=== PATIENT | female | born 1955 | race Hispanic/Latino ===

== ENCOUNTER 2021-11-11 15:05 | Emergency (ER) | payer OTHER ==
[~2021-11-11] VITALS: Ht 162.6 cm; Wt 75.7 kg
[2021-11-11 16:00] LABS: BASOPHILS % (AUTO) 0.8 % (0.0-5.0); EOSINOPHILS % (AUTO) 1.4 % (0.0-8.0); HEMATOCRIT 38.1 % (36-48); MEAN CORPUSCULAR HEMOGLOBIN 23.4 pg (27.0-33.0); MEAN CORPUSCULAR HGB CONC 31.2 g/dL (32.0-36.0); MEAN CORPUSCULAR VOLUME 74.9 fL (79-99); MONOCYTES % (AUTO) 15.1 % (3.0-13.0); NEUTROPHILS % (AUTO) 54.5 % (40.0-77.0); PLATELET COUNT (AUTO) 170 K/uL (130-400); RED BLOOD CELL COUNT(AUTO) 5.09 MIL/uL (4.00-5.50); RED CELL DISTRIBUTION WIDTH 25.4 % (11.0-15.5); WHITE BLOOD COUNT (AUTO) 4.9 K/uL (4.8-10.8)
[2021-11-11 16:04] VITALS: BP 126/66
[2021-11-11 16:15] LABS: ALBUMIN 2.7 g/dL (3.5-5.0); BILIRUBIN,TOTAL 1.3 mg/dL (0.2-1.0); CREATININE 0.6 mg/dL (0.5-1.5)
[2021-11-11 16:18] LABS: POTASSIUM 2.8 mmol/L (3.5-5.1)
[2021-11-11] MEDS ORDERED: POTASSIUM BICARB/CIT AC 25 MEQ TABLET.EFF PO ONE (16:30)
[2021-11-11 16:35] LABS: APPEARANCE,URINE SL CLOUDY (CLEAR); BILIRUBIN,URINE SMALL (NEGATIVE); COLOR,URINE YELLOW (YELLOW); GLUCOSE, URINE (UA) NEGATIVE (NEGATIVE); KETONES,URINE 5 mg/dL (NEGATIVE); LEUKOCYTE ESTERASE ,URINE NEGATIVE (NEGATIVE); NITRATE,URINE NEGATIVE (NEGATIVE); OCCULT BLOOD,URINE NEGATIVE (NEGATIVE); PROTEIN,URINE NEGATIVE (NEGATIVE)
[2021-11-11 16:54] LABS: BACTERIA,URINE Few /HPF (None Seen); MUCUS,URINE Moderate LPF (None Seen); RBC,URINE 0-1 /HPF (0-1); SQUAMOUS EPITHELIAL CELL,UR Moderate /HPF (0-2); WBC,URINE 0-1 /HPF (0-1)
[2021-11-11 16:57] LABS: TRANSITIONAL EPI CELLS,URINE Rare /HPF (None Seen)
[2021-11-11] MEDS ORDERED: POLY17PO4 PO (17:41)
== END 2021-11-11 17:55 | disposition home or self-care (01) ==
LOC: EDH 15:05
DX: E87.6 Hypokalemia (principal); R18.8 Other ascites; K59.00 Constipation, unspecified
CPT/HCPCS: 36415; 74176; 80053; 81001; 85025

== ENCOUNTER 2021-11-16 09:07 | Emergency (ER) | payer OTHER ==
[~2021-11-16] VITALS: Ht 154.9 cm; Wt 75.7 kg
[~2021-11-16 09:07] MED LIST: POLY17PO4 PO
[2021-11-16 09:34] LABS: BASOPHILS % (AUTO) 0.8 % (0.0-5.0); EOSINOPHILS % (AUTO) 0.9 % (0.0-8.0); HEMATOCRIT 40.7 % (36-48); LYMPHOCYTES % (AUTO) 28.7 % (21.0-51.0); MEAN CORPUSCULAR HEMOGLOBIN 23.5 pg (27.0-33.0); MEAN CORPUSCULAR HGB CONC 31.2 g/dL (32.0-36.0); MEAN CORPUSCULAR VOLUME 75.2 fL (79-99); MONOCYTES % (AUTO) 14.7 % (3.0-13.0); NEUTROPHILS % (AUTO) 54.5 % (40.0-77.0); PLATELET COUNT (AUTO) 189 K/uL (130-400); RED BLOOD CELL COUNT(AUTO) 5.41 MIL/uL (4.00-5.50); RED CELL DISTRIBUTION WIDTH 25.3 % (11.0-15.5); WHITE BLOOD COUNT (AUTO) 5.3 K/uL (4.8-10.8)
[2021-11-16 09:47] LABS: ALANINE AMINOTRANSFERASE 22 U/L (12-78); ALBUMIN 2.7 g/dL (3.5-5.0); ASPARTATE AMINOTRANSFERASE 41 U/L (10-37); CARBON DIOXIDE 27 mmol/L (21-32); CHLORIDE 105 mmol/L (101-111); CREATININE 0.7 mg/dL (0.5-1.5); GLOMERULAR FILTR. RATE CALC 90 mL/min (>60); GLUCOSE,RANDOM 106 mg/dL (70-105); SODIUM SERUM 141 mmol/L (136-145); TOTAL PROTEIN, SERUM 7.2 g/dL (6.0-8.3); UREA NITROGEN, BLOOD 22 mg/dL (7-18)
[2021-11-16 10:10] LABS: POTASSIUM 2.9 mmol/L (3.5-5.1)
[2021-11-16] MEDS ORDERED: KCL 20 MEQ ERTAB PO ONE (11:30)
[2021-11-16] MEDS ORDERED: ONDANSETRON 4MG INJ IVP ONE (11:30)
[2021-11-16] MEDS ORDERED: MORPHINE 2 MG SYG IVP ONE (11:30)
[2021-11-16 13:50] LABS: ALBUMIN,BODY FLUID 0.8 g/dL
[2021-11-16 13:56] VITALS: BP 132/61
[2021-11-16 14:27] LABS: APPEARANCE BODY FLUID CLOUDY (CLEAR); COLOR,BODY FLUID YELLOW (LT YELLOW); SPECIMENTYPE,BODY FLUID ASCITES; TOTAL VOLUME,BODY FLUID 30 mL
[2021-11-16 14:35] LABS: BODY FLUID WBC 909 /cu. mm.
[2021-11-16 14:36] LABS: BODY FLUID RBC 2150 /cu. mm.
[2021-11-16 14:38] LABS: BF LYMPHOCYTE 93 %; BF MESOTHELIAL 1 %; BF MONOCYTE 3 %
[2021-11-16] MEDS ORDERED: CEFTRIAXONE 2GM VIAL IVP ONE (15:30)
[2021-11-16] MEDS ORDERED: CEFD300C3 PO (15:59)
== END 2021-11-16 17:03 | disposition home or self-care (01) ==
LOC: EDH 09:07
DX: R18.8 Other ascites (principal); E87.6 Hypokalemia; K74.60 Unspecified cirrhosis of liver; E11.9 Type 2 diabetes mellitus without complications; I10 Essential (primary) hypertension; Z98.890 Other specified postprocedural states; Z60.2 Problems related to living alone; Z79.899 Other long term (current) drug therapy
CPT/HCPCS: 49082; 99285; 96374; 76705; 96375; 84157; 80053; 83690; 85025; 89051; 87071; 87205; 82042; 36415; J0696; J2405

== ENCOUNTER 2021-11-28 23:44 | Inpatient (IN) | payer OTHER ==
[~2021-11-28] VITALS: Ht 152.4 cm; Wt 76.8 kg
[~2021-11-28 23:44] MED LIST changes: +CEFD300C3 PO
[2021-11-28 23:58] LABS: BASOPHILS % (AUTO) 0.9 % (0.0-5.0); EOSINOPHILS % (AUTO) 1.1 % (0.0-8.0); HEMATOCRIT 38.9 % (36-48); LYMPHOCYTES % (AUTO) 23.3 % (21.0-51.0); MEAN CORPUSCULAR HEMOGLOBIN 23.7 pg (27.0-33.0); MEAN CORPUSCULAR HGB CONC 30.8 g/dL (32.0-36.0); MEAN CORPUSCULAR VOLUME 76.7 fL (79-99); MONOCYTES % (AUTO) 18.2 % (3.0-13.0); NEUTROPHILS % (AUTO) 56.3 % (40.0-77.0); PLATELET COUNT (AUTO) 157 K/uL (130-400); RED BLOOD CELL COUNT(AUTO) 5.07 MIL/uL (4.00-5.50); RED CELL DISTRIBUTION WIDTH 24.7 % (11.0-15.5); WHITE BLOOD COUNT (AUTO) 6.5 K/uL (4.8-10.8)
[2021-11-29 00:10] LABS: CARBON DIOXIDE 28 mmol/L (21-32); CHLORIDE 101 mmol/L (101-111); CREATININE 0.8 mg/dL (0.5-1.5); GLOMERULAR FILTR. RATE CALC 77 mL/min (>60); GLUCOSE,RANDOM 105 mg/dL (70-105); POTASSIUM 3.6 mmol/L (3.5-5.1); SODIUM SERUM 134 mmol/L (136-145); UREA NITROGEN, BLOOD 12 mg/dL (7-18)
[2021-11-29 00:18] LABS: ALANINE AMINOTRANSFERASE 39 U/L (12-78); ALBUMIN 2.4 g/dL (3.5-5.0); ASPARTATE AMINOTRANSFERASE 71 U/L (10-37); TOTAL PROTEIN, SERUM 6.8 g/dL (6.0-8.3)
[2021-11-29 00:28] LABS: INR 1.16 (0.85-1.15); PARTIAL THROMBOPLASTIN TIME 26.4 SEC (26.3-35.5)
[2021-11-29] MEDS ORDERED: ONDANSETRON 4MG INJ IV PRN (01:30)
[2021-11-29] MEDS ORDERED: ACETAMINOPHEN WITH CODEINE 1 TAB TAB PO PRN (01:30)
[2021-11-29] MEDS ORDERED: HYDROMORPHONE 1 MG INJ IV PRN (01:30)
[2021-11-29] MEDS ORDERED: ACETAMINOPHEN 325 MG TAB PO PRN ×2 (01:30)
[2021-11-29 01:54] LABS: HEMOGLOBIN A1C 5.7 % (4.0-6.0)
[2021-11-29] MEDS: FUROSEMIDE 20MG VIAL IV SCH ×2 (02:40→15:46)
[2021-11-29 03:00] VITALS: BP 129/73
[2021-11-29] MEDS ORDERED: SPIR25TA6 PO (03:31)
[2021-11-29] MEDS ORDERED: METF-444 PO (03:31)
[2021-11-29] MEDS ORDERED: ATOR20TA65 PO (03:31)
[2021-11-29] MEDS ORDERED: CANA300T PO (03:31)
[2021-11-29] MEDS ORDERED: LEVO50CA4 PO (03:31)
[2021-11-29 03:33] LABS: APPEARANCE,URINE CLEAR (CLEAR); BILIRUBIN,URINE NEGATIVE (NEGATIVE); COLOR,URINE YELLOW (YELLOW); GLUCOSE, URINE (UA) >=1000 mg/dL (NEGATIVE); KETONES,URINE NEGATIVE (NEGATIVE); LEUKOCYTE ESTERASE ,URINE NEGATIVE (NEGATIVE); NITRATE,URINE NEGATIVE (NEGATIVE); OCCULT BLOOD,URINE NEGATIVE (NEGATIVE); PROTEIN,URINE NEGATIVE (NEGATIVE); UROBILINOGEN,URINE 0.2 mg/dL (0.2-1.0)
[2021-11-29 03:50] LABS: WBC,URINE 0-1 /HPF (0-1)
[2021-11-29 03:58] LABS: BACTERIA,URINE None Seen /HPF (None Seen)
[2021-11-29 03:59] LABS: SQUAMOUS EPITHELIAL CELL,UR Few /HPF (0-2)
[2021-11-29] MEDS: LEVOFLOXACIN 500 MG/D5W 100 ML 100 ML IV SCH (04:42)
[2021-11-29] MEDS: INSULIN HUMULIN R 100 UNIT/ML 3ML SQ SCH ×4 (06:08→19:59)
[2021-11-29] MEDS: LEVOTHYROXINE 50 MCG TABLET PO SCH (07:44)
[2021-11-29] MEDS: PANTOPRAZOLE 40 MG/VIAL IVP SCH (08:32)
[2021-11-29] MEDS: SPIRONOLACTONE 25 MG TAB PO SCH ×2 (08:33→20:31)
[2021-11-29] MEDS: LACTULOSE 20 GM/30 ML UDCUP PO SCH ×2 (08:33→20:33)
[2021-11-29] MEDS: Vitamin B Complex/Vit C/Folic Acid PO SCH (08:33)
[2021-11-29] MEDS ORDERED: FAMOTIDINE 20MG VIAL IV SCH (09:00)
[2021-11-29] MEDS ORDERED: RIFAXIMIN 200 MG TABLET PO SCH (09:00)
[2021-11-29 09:19] VITALS: BP 105/59
[2021-11-29 09:22] LABS: BASOPHILS % (AUTO) 0.8 % (0.0-5.0); EOSINOPHILS % (AUTO) 1.9 % (0.0-8.0); HEMATOCRIT 35.7 % (36-48); LYMPHOCYTES % (AUTO) 22.3 % (21.0-51.0); MEAN CORPUSCULAR HEMOGLOBIN 24.5 pg (27.0-33.0); MEAN CORPUSCULAR HGB CONC 31.7 g/dL (32.0-36.0); MEAN CORPUSCULAR VOLUME 77.4 fL (79-99); MONOCYTES % (AUTO) 19.1 % (3.0-13.0); NEUTROPHILS % (AUTO) 55.6 % (40.0-77.0); PLATELET COUNT (AUTO) 141 K/uL (130-400); RED BLOOD CELL COUNT(AUTO) 4.61 MIL/uL (4.00-5.50); RED CELL DISTRIBUTION WIDTH 24.4 % (11.0-15.5); WHITE BLOOD COUNT (AUTO) 6.2 K/uL (4.8-10.8)
[2021-11-29 09:54] LABS: CARBON DIOXIDE 21 mmol/L (21-32); CHLORIDE 101 mmol/L (101-111); CREATININE 0.7 mg/dL (0.5-1.5); GLOMERULAR FILTR. RATE CALC 90 mL/min (>60); GLUCOSE,RANDOM 83 mg/dL (70-105); POTASSIUM 3.7 mmol/L (3.5-5.1); SODIUM SERUM 133 mmol/L (136-145); UREA NITROGEN, BLOOD 13 mg/dL (7-18)
[2021-11-29 09:59] LABS: ALANINE AMINOTRANSFERASE 36 U/L (12-78); ALBUMIN 2.2 g/dL (3.5-5.0); ASPARTATE AMINOTRANSFERASE 69 U/L (10-37); TOTAL PROTEIN, SERUM 6.4 g/dL (6.0-8.3)
[2021-11-29] MEDS: ATORVASTATIN 20 MG TABLET PO SCH (10:34)
[2021-11-29 12:45] VITALS: BP 120/70
[2021-11-29 17:45] VITALS: BP 123/74
[2021-11-29 20:27] VITALS: BP 117/60
[2021-11-29] MEDS: RIFAXIMIN 550 MG TABLET PO SCH (20:31)
[2021-11-30] VITALS (14 sets, daily range): BP systolic 98–131; BP diastolic 43–67
[2021-11-30] MEDS: FUROSEMIDE 20MG VIAL IV SCH ×2 (02:09→17:41)
[2021-11-30] MEDS: LEVOFLOXACIN 500 MG/D5W 100 ML 100 ML IV SCH (04:16)
[2021-11-30 05:07] LABS: BASOPHILS % (AUTO) 0.5 % (0.0-5.0); EOSINOPHILS % (AUTO) 2.2 % (0.0-8.0); HEMATOCRIT 35.7 % (36-48); LYMPHOCYTES % (AUTO) 26.7 % (21.0-51.0); MEAN CORPUSCULAR HEMOGLOBIN 24.3 pg (27.0-33.0); MEAN CORPUSCULAR HGB CONC 31.4 g/dL (32.0-36.0); MEAN CORPUSCULAR VOLUME 77.4 fL (79-99); MONOCYTES % (AUTO) 18.9 % (3.0-13.0); NEUTROPHILS % (AUTO) 51.5 % (40.0-77.0); PLATELET COUNT (AUTO) 140 K/uL (130-400); RED BLOOD CELL COUNT(AUTO) 4.61 MIL/uL (4.00-5.50); RED CELL DISTRIBUTION WIDTH 24.3 % (11.0-15.5); WHITE BLOOD COUNT (AUTO) 4.1 K/uL (4.8-10.8)
[2021-11-30] MEDS: LEVOTHYROXINE 50 MCG TABLET PO SCH (05:46)
[2021-11-30 06:36] LABS: ALANINE AMINOTRANSFERASE 38 U/L (12-78); ASPARTATE AMINOTRANSFERASE 62 U/L (10-37); CARBON DIOXIDE 28 mmol/L (21-32); CHLORIDE 104 mmol/L (101-111); CREATININE 0.7 mg/dL (0.5-1.5); GLOMERULAR FILTR. RATE CALC 90 mL/min (>60); GLUCOSE,RANDOM 90 mg/dL (70-105); POTASSIUM 3.4 mmol/L (3.5-5.1); SODIUM SERUM 138 mmol/L (136-145); TOTAL PROTEIN, SERUM 5.9 g/dL (6.0-8.3); UREA NITROGEN, BLOOD 10 mg/dL (7-18)
[2021-11-30] MEDS: INSULIN HUMULIN R 100 UNIT/ML 3ML SQ SCH ×4 (06:51→21:00)
[2021-11-30] MEDS ORDERED: MAGNESIUM 2GM PREMIX 50ML 50 ML IV PRN (08:00)
[2021-11-30] MEDS ORDERED: KCL 20 MEQ ERTAB PO PRN (08:00)
[2021-11-30] MEDS ORDERED: POTASSIUM CHLORIDE 10% ELIXIR 20 MEQ/15 ML UDCUP PO PRN (08:00)
[2021-11-30] MEDS ORDERED: POTASSIUM CHLORIDE 20MEQ/100ML 100 ML IV PRN (08:00)
[2021-11-30] MEDS: RIFAXIMIN 550 MG TABLET PO SCH ×2 (12:35→21:32)
[2021-11-30] MEDS: Vitamin B Complex/Vit C/Folic Acid PO SCH (12:36)
[2021-11-30] MEDS: LACTULOSE 20 GM/30 ML UDCUP PO SCH ×2 (12:46→21:32)
[2021-11-30] MEDS: PANTOPRAZOLE 40 MG/VIAL IVP SCH (12:46)
[2021-11-30] MEDS: SPIRONOLACTONE 25 MG TAB PO SCH ×2 (12:46→21:32)
[2021-11-30 13:29] LABS: ALBUMIN,BODY FLUID 0.9 g/dL
[2021-11-30] MEDS: ATORVASTATIN 20 MG TABLET PO SCH (13:35)
[2021-11-30 17:15] LABS: SPECIMENTYPE,BODY FLUID ASCITES
[2021-11-30 17:16] LABS: APPEARANCE BODY FLUID CLOUDY (CLEAR); BODY FLUID WBC 199 /cu. mm.; COLOR,BODY FLUID DARK YELLOW (LT YELLOW); TOTAL VOLUME,BODY FLUID 3500 mL
[2021-11-30 17:17] LABS: BODY FLUID RBC 3995 /cu. mm.
[2021-11-30 20:03] LABS: BF LYMPHOCYTE 64 %; BF OTHER CELLS 4
[2021-12-01] MEDS: FUROSEMIDE 20MG VIAL IV SCH (01:33)
[2021-12-01] MEDS: LEVOFLOXACIN 500 MG/D5W 100 ML 100 ML IV SCH (03:33)
[2021-12-01 04:28] VITALS: BP 101/61
[2021-12-01] MEDS: INSULIN HUMULIN R 100 UNIT/ML 3ML SQ SCH (06:02)
[2021-12-01] MEDS: LEVOTHYROXINE 50 MCG TABLET PO SCH (06:17)
[2021-12-01 06:30] LABS: BASOPHILS % (AUTO) 0.6 % (0.0-5.0); EOSINOPHILS % (AUTO) 0.8 % (0.0-8.0); HEMATOCRIT 38.1 % (36-48); LYMPHOCYTES % (AUTO) 20.8 % (21.0-51.0); MEAN CORPUSCULAR HGB CONC 31.5 g/dL (32.0-36.0); MEAN CORPUSCULAR VOLUME 76.4 fL (79-99); NEUTROPHILS % (AUTO) 57.8 % (40.0-77.0); PLATELET COUNT (AUTO) 138 K/uL (130-400); RED BLOOD CELL COUNT(AUTO) 4.99 MIL/uL (4.00-5.50); RED CELL DISTRIBUTION WIDTH 24.4 % (11.0-15.5); WHITE BLOOD COUNT (AUTO) 4.7 K/uL (4.8-10.8)
[2021-12-01 06:44] LABS: CREATININE 0.7 mg/dL (0.5-1.5); POTASSIUM 3.7 mmol/L (3.5-5.1)
[2021-12-01 07:55] VITALS: BP 113/56
[2021-12-01] MEDS: PANTOPRAZOLE 40 MG/VIAL IVP SCH (09:33)
[2021-12-01] MEDS: RIFAXIMIN 550 MG TABLET PO SCH (09:35)
[2021-12-01] MEDS: LACTULOSE 20 GM/30 ML UDCUP PO SCH (09:35)
[2021-12-01] MEDS: SPIRONOLACTONE 25 MG TAB PO SCH (09:36)
[2021-12-01] MEDS: ATORVASTATIN 20 MG TABLET PO SCH (09:48)
[2021-12-01] MEDS ORDERED: FURO20TA6 PO (11:04)
[2021-12-01] MEDS ORDERED: LACT10SO9 PO (11:04)
[2021-12-01 11:33] VITALS: BP 124/68
[2021-12-01 16:20] VITALS: BP 111/58
== END 2021-12-01 20:34 | disposition home or self-care (01) | DRG 432 ==
LOC: EDH 23:44 → EDHIP 23:45 → 3DH 11-29 03:03
PROVIDERS: ADMIT Hospitalist; ATTEND Hospitalist
PROC: 0W9G3ZZ Drainage of Peritoneal Cavity, Percutaneous Approach (ICD-10-PCS; principal; 2021-11-30)
DX: K74.60 Unspecified cirrhosis of liver (principal); J96.01 Acute respiratory failure with hypoxia; R18.8 Other ascites; E87.70 Fluid overload, unspecified; E89.0 Postprocedural hypothyroidism; E11.9 Type 2 diabetes mellitus without complications; K76.0 Fatty (change of) liver, not elsewhere classified; Z20.822 Contact with and (suspected) exposure to COVID-19; E78.5 Hyperlipidemia, unspecified; I10 Essential (primary) hypertension
CPT/HCPCS: 36415; 49083; 71045; 76700; 80048; 80053; 81001; 82042; 82140; 82948; 83036; 83615; 83735; 84157; 84484; 85025; 85610; 85730; 87040; 87071; 87205; 87635; 89051; 93005; 93306; 93356; C1729; C9113; G0378; J1940; J1956; J3475

== ENCOUNTER 2022-02-21 00:04 | Emergency (ER) | payer OTHER ==
[~2022-02-21] VITALS: Ht 157.5 cm; Wt 66.7 kg
[~2022-02-21 00:04] MED LIST changes: +ATOR20TA65 PO; -CEFD300C3 PO; +FURO20TA6 PO; +LACT10SO9 PO; +LEVO50CA4 PO; -POLY17PO4 PO; +SPIR25TA6 PO
[2022-02-21 01:16] VITALS: BP 132/65
== END 2022-02-21 01:31 | disposition home or self-care (01) ==
LOC: EDH 00:04
DX: F41.0 Panic disorder [episodic paroxysmal anxiety] (principal); E11.9 Type 2 diabetes mellitus without complications; E78.00 Pure hypercholesterolemia, unspecified; I10 Essential (primary) hypertension

== ENCOUNTER 2024-03-20 16:45 | Emergency (ER) | payer OTHER, MEDICARE ==
[~2024-03-20] VITALS: Ht 154.9 cm; Wt 72.6 kg
[2024-03-20] MEDS: PANTOPrazole 40 MG/VIAL IVP ONE (17:46)
[2024-03-20] MEDS: 0.9%NACL 1000ML 1,000 ML IV ONE (17:46)
[2024-03-20] MEDS: ondanSETRON 4MG INJ IVP ONE (17:47)
--- NOTE | 2024-03-20 17:50 | HMCIMG ---
PORTABLE CHEST RADIOGRAPH INDICATION: cp COMPARISON: 12/01/2021 FINDINGS: Heart size is normal. The pulmonary vascularity and jeanne appear normal. No abnormal pulmonary parenchymal opacity or consolidation identified. No significant pleural effusion noted. No pneumothorax detected. IMPRESSION: No radiographic evidence for any acute cardiopulmonary process.
[2024-03-20 17:56] LABS: BASOPHILS # (AUTO) 0.04 K/uL (0.00-0.20); BASOPHILS % (AUTO) 0.5 % (0.0-5.0); EOSINOPHILS # (AUTO) 0.02 K/uL (0.00-0.70); EOSINOPHILS % (AUTO) 0.2 % (0.0-8.0); HEMATOCRIT 43.1 % (36-48); IMMATURE GRANULOCYTE ABSOLUTE 0.01 K/uL (0-1); LYMPHOCYTES # (AUTO) 0.9 K/uL (1.0-4.8); LYMPHOCYTES % (AUTO) 10.7 % (21.0-51.0); MEAN CORPUSCULAR HGB CONC 34.3 g/dL (32.0-36.0); MEAN CORPUSCULAR VOLUME 93.1 fL (79-99); MONOCYTES # (AUTO) 0.8 K/uL (0.1-1.0); MONOCYTES % (AUTO) 10.2 % (3.0-13.0); NEUTROPHILS # (AUTO) 6.4 K/uL (1.8-7.7); NEUTROPHILS % (AUTO) 78.3 % (40.0-77.0); PLATELET COUNT (AUTO) 96 K/uL (130-400); RED BLOOD CELL COUNT(AUTO) 4.63 MIL/uL (4.00-5.50); RED CELL DISTRIBUTION WIDTH 13.1 % (11.0-15.5); WHITE BLOOD COUNT (AUTO) 8.2 K/uL (4.8-10.8)
[2024-03-20] MEDS: morPHINE 4 MG SYG IVP ONE (17:56)
[2024-03-20 18:12] LABS: CREATININE 0.6 mg/dL (0.5-1.0); POTASSIUM 3.3 mmol/L (3.5-5.1)
[2024-03-20 18:54] LABS: ALBUMIN 3.5 g/dL (3.5-5.0); BILIRUBIN,DIRECT 0.6 mg/dL (0.0-0.3); BILIRUBIN,TOTAL 1.7 mg/dL (0.2-1.0); TOTAL PROTEIN, SERUM 7.6 g/dL (6.0-8.3)
[2024-03-20] MEDS ORDERED: IOHEXOL 350 MG/ML 100ML INFUS..BTL IV ONE (18:59)
--- NOTE | 2024-03-20 19:28 | HMCIMG ---
CT ABDOMEN WITH CONTRAST. CT PELVIS WITH CONTRAST INDICATION: Epigastric abdominal pain with nausea and vomiting TECHNIQUE: Routine transaxial images using 5 mm slice thickness were obtained after the intravenous infusion of 100 mL of Omnipaque 350 without adverse effects. Oral contrast was not administered. Rectal contrast was not administered. Coronal and sagittal reformatted images acquired for interpretation. CT was performed with one or more of the following dose reduction techniques: Automated exposure control, adjustment of the mA and/or kV according to patient size, or use of iterative reconstruction technique. COMPARISON: None FINDINGS: ABDOMEN: Heart size is normal. Visible lung bases are clear. The liver is normal in size and nodular in contour without lesions or biliary duct dilation. Diffuse low attenuation of the liver parenchyma suggests fatty change. The spleen is normal in size without lesions. The gallbladder appears normal. The pancreas appears normal without pancreatic duct dilation. The adrenal glands appear normal. Both kidneys appear unremarkable. Cortical nephrograms are symmetric and normal in appearance bilaterally. No evidence for intra-abdominal free air or organized fluid collection. No retrocrural, intraabdominal, or retroperitoneal lymphadenopathy identified. No aortic aneurysmal dilation or dissection identified. PELVIS: No evidence for free air or organized pelvic fluid collection. No significant pelvic adenopathy detected. 3.1 cm diverticulum arising superiorly off the mid to distal duodenal sweep. Several diverticula along the distal colon. Terminal ileum appears normal. The appendix appears normal. The urinary bladder appears unremarkable. Visible osseous structures are intact. IMPRESSION: Cirrhotic liver. Distal colonic diverticulosis. Additional minor findings and pertinent negatives as reported.
[2024-03-20] MEDS ORDERED: PANT20TA18 PO (20:39)
[2024-03-20] MEDS ORDERED: LACT10SO9 PO (20:39)
[2024-03-20] MEDS ORDERED: ONDA-243 PO (20:39)
--- NOTE | 2024-03-20 20:40 | ERN ---
ED Note History of Present Illness Stated Complaint: ABDOMINAL PAIN Chief Complaint: Abdominal Pain Time Seen by MD: 16:46 Time Seen by Midlevel: 16:46 Dictation: The patient is a 68-year-old female with a history of hypertension, diabetes, liver cirrhosis who presents to the emergency department with complaints of a epigastric abdominal pain onset 3:00 p.m. after eating associated with nausea, nonbloody vomiting. Patient denies diarrhea and reports constipation. Denies any fevers or urinary discomfort. Allergies: Coded Allergies: No Known Drug Allergies (Unverified Allergy, Unknown, 11/16/21) Home Meds Active Scripts Ondansetron (Ondansetron Odt) 4 Mg Tab.rapdis, 4 MG PO Q6HPRN PRN for nausea, #16 TAB 0 Refills Prov:SIGRID HEATON [employer] INSPECTOR 03/20/24 Pantoprazole Sodium (Pantoprazole Sodium) 20 Mg Tablet.dr, 1 TAB PO DAILY for 30 Days, #30 TAB 0 Refills Prov:SIGRID HEATON [employer]PECT[employer] 03/20/24 Lactulose (Lactulose) 20 Gram/30 Ml Solution, 30 ML PO DAILY for constipation for 30 Days, #900 ML 0 Refills Prov:SIGRID HEATON [employer] INSPECTOR 03/20/24 Lactulose (Lactulose) 20 Gm/30 Ml Solution, 20 GM PO BID for For constipation for 30 Days, #470 ML 0 Refills Prov:MICHAEL HERNANDEZ MD 12/01/21 Furosemide (Lasix 20Mg Tab) 20 Mg Tablet, 20 MG PO DAILY for 15 Days, #15 TAB 0 Refills Prov:MICHAEL HERNANDEZ MD 12/01/21 Reported Medications Atorvastatin Calcium (Atorvastatin Calcium) 20 Mg Tablet, 20 MG PO DAILY, TAB 11/29/21 Levothyroxine Sodium (Levothyroxine) 50 Mcg Capsule, 50 MCG PO ACBKFST, CAP 11/29/21 Spironolactone (Spironolactone) 25 Mg Tablet, 25 MG PO BOLUS, TAB 11/29/21 Past Medical History Past Medical History: Diabetes-Type II, High Cholesterol, Hypertension, Hypothyroid, Other Additional Past Medical Hx: LIVER CIRRHOSIS Surgical History: Other Surgical History Other: THYROIDECTOMY Social History: Negative, Lives with family, Lives alone History: Not Applicable RN Note Reviewed/Agreed w/PFSH: Yes Review of System Dictation Constitutional: Negative for fever,chills, and weight loss Eyes: Negative for injury, pain,redness, and discharge ENT: Negative for injury,pain or swelling Cardiovascular: Negative for chest pain, palpitations, and edema Respiratory: Negative for shortness of breath, cough, and wheezing, Abdomen/GI: Negative for diarrhea positive for abdominal pain, nausea, vomiting, constipation Back: Negative for injury and pain : Negative for injury, bleeding and discharge MS/Extremity: Negative for injury and deformity Skin: Negative for rash, and discoloration Neuro: Negative for headache, weakness, numbness, tingling, and seizure Psych: Negative for suicide ideation, homicidal ideation, and hallucinations Initial Vital Sign VS Vital Signs Date Time Temp Pulse Resp B/P (MAP) Pulse Ox O2 Delivery O2 Flow Rate FiO2 03/20/24 16:45 98.2 88 18 156/67 98 Room Air 0 03/20/24 16:58 21 Physical Exam Dictation Vital Signs reviewed General Appearance: Alert, oriented x 3, no acute distress, well developed, nourished. Head and Face: non-traumatic. Eyes: PERRL, pink conjunctivas, eyelid no trauma, anterior chamber with arcus senilis. Ears: Pinnas intact and no signs of trauma or erythema ear canals clear and no discharge TM no erythema Nose: No discharge, no bleeding. Oropharynx: Mouth normal, tongue pink. pharynx clear,no erythema, tonsils no exudates, no abscesses noted, mucous membrane moist Neck: Supple, non-tender, no thyromegaly, no masses, no JVD, no bruits Breast:Deferred Chest:No tenderness, no crepitus, no paradoxical movement, no retractions Lungs:Clear, well-ventilated, symmetric, no rales, no wheezing, no rhonchi, no stridor, good breath sounds bilaterally Heart: Regular rate, regular rhythm, no murmur, no gallops Vascular: no peripheral edema, Abdomen: Soft, positive bowel sounds, nondistended, no guarding, nontender, no rebound, no masses no hepatomegaly, no splenomegaly, no Hernandez's sign, no hernias. Rectal: Deferred Genital: Deferred Neurological: Normal speech, motor function intact, sensory function intact Musculoskeletal: Neck nontender, full range of motion, back nontender, full range of motion, Extremities: nontender, full range of motion Skin: Color pink, dry, no turgor, no rash, no lacerations, no abrasions, no contusions. Lymphatic: Deferred Results (Laboratory/Radiology) Laboratory/Radiology Laboratory Tests Test 03/20/24 17:33 03/20/24 20:20 White Blood Count 8.2 K/uL (4.8-10.8) Red Blood Count 4.63 MIL/uL (4.00-5.50) Hemoglobin 14.8 g/dL (12.0-16.0) Hematocrit 43.1 % (36-48) Mean Corpuscular Volume 93.1 fL (79-99) Mean Corpuscular Hemoglobin 32.0 pg (27.0-33.0) Mean Corpuscular Hemoglobin Concent 34.3 g/dL (32.0-36.0) Red Cell Distribution Width 13.1 % (11.0-15.5) Platelet Count 96 K/uL (130-400) L Mean Platelet Volume 10.5 fL (7.5-10.5) Immature Granulocyte % (Auto) 0.1 % (0-1) Neutrophils (%) (Auto) 78.3 % (40.0-77.0) H Lymphocytes (%) (Auto) 10.7 % (21.0-51.0) L Monocytes (%) (Auto) 10.2 % (3.0-13.0) Eosinophils (%) (Auto) 0.2 % (0.0-8.0) Basophils (%) (Auto) 0.5 % (0.0-5.0) Neutrophils # (Auto) 6.4 K/uL (1.8-7.7) Lymphocytes # (Auto) 0.9 K/uL (1.0-4.8) L Monocytes # (Auto) 0.8 K/uL (0.1-1.0) Eosinophils # (Auto) 0.02 K/uL (0.00-0.70) Basophils # (Auto) 0.04 K/uL (0.00-0.20) Absolute Immature Granulocyte (auto 0.01 K/uL (0-1) Nucleated Red Blood Cells 0.0 % (0.0-0.19) Sodium Level 137 mmol/L (136-145) Potassium Level 3.3 mmol/L (3.5-5.1) L Chloride Level 103 mmol/L (101-111) Carbon Dioxide Level 27 mmol/L (21-32) Blood Urea Nitrogen 12 mg/dL (7-18) Creatinine 0.6 mg/dL (0.5-1.0) Glomerular Filtration Rate Calc 99 mL/min (>90) Random Glucose 94 mg/dL (70-105) Total Calcium 9.0 mg/dL (8.5-10.1) Total Bilirubin 1.7 mg/dL (0.2-1.0) H Direct Bilirubin 0.6 mg/dL (0.0-0.3) H Aspartate Amino Transf (AST/SGOT) 53 U/L (10-37) H Alanine Aminotransferase (ALT/SGPT) 47 U/L (12-78) Alkaline Phosphatase 174 U/L (50-136) H Troponin I High Sensitivity 8 ng/L (4-50) Total Protein 7.6 g/dL (6.0-8.3) Albumin 3.5 g/dL (3.5-5.0) Lipase 51 U/L (16-77) Urine Color LIGHT-YELLOW (YELLOW) Urine Appearance CLEAR (CLEAR) Urine pH 7.0 (5.0-8.0) Urine Protein NEGATIVE mg/dL (NEGATIVE) Urine Glucose (UA) NEGATIVE mg/dL (NEGATIVE) Urine Ketones 10 mg/dL (NEGATIVE) H Urine Occult Blood NEGATIVE (NEGATIVE) Urine Nitrate NEGATIVE (NEGATIVE) Urine Bilirubin NEGATIVE mg/dL (NEGATIVE) Urine Urobilinogen 0.2 mg/dL (0.2-1.0) Urine Leukocyte Esterase NEGATIVE Isaiah/uL Urine RBC 2-5 /HPF (0-1) H Urine WBC 2-5 /HPF (0-1) H Urine Bacteria None Seen /HPF (None Seen) REASON: cp ORDERING PHYSICIAN: SIGRID HEATON [employer] FINISH[employer] INSPECTOR PROCEDURE: CXR1VW - CHEST 1VW PORTABLE CHEST RADIOGRAPH INDICATION: cp COMPARISON: 12/01/2021 FINDINGS: Heart size is normal. The pulmonary vascularity and jeanne appear normal. No abnormal pulmonary parenchymal opacity or consolidation identified. No significant pleural effusion noted. No pneumothorax detected. IMPRESSION: No radiographic evidence for any acute cardiopulmonary process. REASON: epigastric abd pain, n/v ORDERING PHYSICIAN: SIGRID HEATON [employer]HE[employer] FINISH[employer] INSPECTOR PROCEDURE: ABD PEL W - CT ABDOMEN/PELVIS W/CONTRAST CT ABDOMEN WITH CONTRAST. CT PELVIS WITH CONTRAST INDICATION: Epigastric abdominal pain with nausea and vomiting TECHNIQUE: Routine transaxial images using 5 mm slice thickness were obtained after the intravenous infusion of 100 mL of Omnipaque 350 without adverse effects. Oral contrast was not administered. Rectal contrast was not administered. Coronal and sagittal reformatted images acquired for interpretation. CT was performed with one or more of the following dose reduction techniques: Automated exposure control, adjustment of the mA and/or kV according to patient size, or use of iterative reconstruction technique. COMPARISON: None FINDINGS: ABDOMEN: Heart size is normal. Visible lung bases are clear. The liver is normal in size and nodular in contour without lesions or biliary duct dilation. Diffuse low attenuation of the liver parenchyma suggests fatty change. The spleen is normal in size without lesions. The gallbladder appears normal. The pancreas appears normal without pancreatic duct dilation. The adrenal glands appear normal. Both kidneys appear unremarkable. Cortical nephrograms are symmetric and normal in appearance bilaterally. No evidence for intra-abdominal free air or organized fluid collection. No retrocrural, intraabdominal, or retroperitoneal lymphadenopathy identified. No aortic aneurysmal dilation or dissection identified. PELVIS: No evidence for free air or organized pelvic fluid collection. No significant pelvic adenopathy detected. 3.1 cm diverticulum arising superiorly off the mid to distal duodenal sweep. Several diverticula along the distal colon. Terminal ileum appears normal. The appendix appears normal. The urinary bladder appears unremarkable. Visible osseous structures are intact. IMPRESSION: Cirrhotic liver. Distal colonic diverticulosis. Additional minor findings and pertinent negatives as reported. Labs Reviewed?: Yes EKG: (+) NSR EKG Comment: EKG 03/20/2024 1733 ventricular rate 91, regular rate and rhythm, normal sinus rhythm, no STEMI. ED Course ED Course Orders Procedure Category Date Status Time Cbc With Differential LAB 03/20/24 Complete 17:13 Troponin I High LAB 03/20/24 Complete Sensitivity 17:13 Urinalysis Profile LAB 03/20/24 In Process 17:13 12 Lead Ekg Tracing- EKG 03/20/24 Logged Technical 17:13 0.9%Nacl 1000ml (Ns PHA 03/20/24 Complete 1000ml) 17:30 Morphine 4mg Syg PHA 03/20/24 Complete (Morphine 4mg Syg) 17:30 Ondansetron 4mg Inj PHA 03/20/24 Complete (Zofran 4mg Inj) 17:30 Pantoprazole 40mg Inj PHA 03/20/24 Complete (Protonix 40mg Inj 17:30 Chest 1vw RAD 03/20/24 Resulted 17:13 Lipase LAB 03/20/24 Complete 17:13 Basic Metabolic Panel LAB 03/20/24 Complete 17:13 Hepatic Function Panel LAB 03/20/24 Complete 17:13 Ct Abdomen/Pelvis CT 03/20/24 Resulted W/Contrast 18:37 Iohexol (Omnipaque) PHA 03/20/24 Complete 18:59 Potassium Chloride PHA 03/20/24 Complete 20meq Er (K-Dur/Klor- 21:00 Current Medications Medications (Trade) Dose Ordered Sig/Peter Route PRN Reason Start Time Stop Time Status Last Admin Dose Admin Iohexol (Omnipaque) 35,000 mg STK-MED ONCE IV 03/20/24 18:59 03/20/24 19:00 DC Morphine Sulfate (morPHINE 4MG SYG) 4 mg ONCE ONCE IVP 03/20/24 17:30 03/20/24 17:31 DC 03/20/24 17:56 Ondansetron HCl (zoFRAN 4MG INJ) 4 mg ONCE ONCE IVP 03/20/24 17:30 03/20/24 17:31 DC 03/20/24 17:47 Pantoprazole Sodium (PROTonix 40MG INJ) 40 mg ONCE ONCE IVP 03/20/24 17:30 03/20/24 17:31 DC 03/20/24 17:46 Potassium Chloride (K-Dur/Klor-Con 20meq) 20 meq ONCE ONCE PO 03/20/24 21:00 03/20/24 21:01 DC Sodium Chloride 1,000 ml @ 0 mls/hr ONCE ONCE IV 03/20/24 17:30 03/20/24 17:31 DC 03/20/24 17:46 Vital Signs Date Time Temp Pulse Resp B/P (MAP) Pulse Ox O2 Delivery O2 Flow Rate FiO2 03/20/24 19:07 98.2 90 18 128/57 98 Room Air* 0 03/20/24 16:58 98.2 91 18 170/54 97 Room Air* 0 03/20/24 16:45 98.2 88 18 156/67 98 Room Air 0 Medical Decision Making MDM The patient is a 68-year-old female with a history of hypertension, diabetes, liver cirrhosis who presents to the emergency department with complaints of a epigastric abdominal pain onset 3:00 p.m. after eating associated with nausea, nonbloody vomiting. Patient denies diarrhea and reports constipation. Denies any fevers or urinary discomfort. CBC showed no leukocytosis, no anemia, chemistry showed mild hypokalemia, slightly elevated T bilirubin and direct bilirubin. Patient with a history of liver cirrhosis. CT abdomen showed diverticulosis. Patient reassessed and reports no longer having any pain. Labs and imaging discussed with the patient who agrees to follow up with PCP. Differential diagnosis: Bowel obstruction, gastritis, electrolyte imbalance, gastroenteritis, UTI Need for hospitalization: Patient does not meet criteria for hospitalization. There are no social concerns with this patient. DX & DISP Disposition: Discharge Departure Impression: Primary Impression: Gastritis Additional Impressions: Abdominal pain, Nausea and vomiting, Constipation, Cirrhosis of liver, Hypokalemia, Diverticulosis Condition: Stable Scripts Ondansetron (Ondansetron Odt) 4 Mg Tab.rapdis 4 MG PO Q6HPRN PRN for nausea, #16 TAB 0 Refills Prov: SIGRID HEATON [facility] 03/20/24 Pantoprazole Sodium (Pantoprazole Sodium) 20 Mg Tablet.dr 1 TAB PO DAILY for 30 Days, #30 TAB 0 Refills Prov: SIGRID HEATON [employer] FINISH[employer] INSPECTOR 03/20/24 Lactulose (Lactulose) 20 Gram/30 Ml Solution 30 ML PO DAILY for constipation for 30 Days, #900 ML 0 Refills Prov: SIGRID HEATON [facility] 03/20/24 Additional Instructions: Please follow up with primary doctor in 1-2 days. Please return to ER if symptoms worsen FOLLOW-UP WITH PRIMARY CARE PROVIDER IN 1 TO 2 DAYS. TAKE MEDICATIONS DIRECTED HERE IN THE EMERGENCY ROOM. OKAY TO CONTINUE HOME MEDICATIONS UNLESS OTHERWISE DISCUSSED DURING YOUR VISIT IN THE EMERGENCY ROOM TODAY. RETURN TO YOUR NEAREST EMERGENCY ROOM IF SYMPTOMS WORSEN OR IF THERE IS NO IMPROVEMENT. CALL 911 IF YOU NEED IMMEDIATE ASSISTANCE. TAKE TYLENOL OR MOTRIN [id number] NEEDED AND IF NO CONTRAINDICATIONS ARE PRESENT. INCREASE ORAL HYDRATION. A WOUND CULTURE OR URINE CULTURE WAS ORDERED HERE IN THE EMERGENCY ROOM DEPARTMENT PLEASE FOLLOW-UP WITH PRIMARY CARE PROVIDER AND ADVISE THEM TO GET REPEAT PORTS FROM OUR FACILITY. IF YOU HAD ANY TEE WRAP/SPLINTS THAT WERE APPLIED HERE, PLEASE DO NOT REMOVE THEM UNTIL YOU SEE YOUR PRIMARY CARE OR SPECIALTY. Referrals: CARINE CHAVEZ (PCP) Time of Disposition: 21:09 I have reviewed the case, and I agree with, Diagnosis and Plan SIGRID HEATON [facility] Mar 20, 2024 20:40
[2024-03-20 21:04] LABS: ADD UA MICROSCOPIC YES; APPEARANCE,URINE CLEAR (CLEAR); BILIRUBIN,URINE NEGATIVE (NEGATIVE); COLOR,URINE LIGHT-YELLOW (YELLOW); GLUCOSE, URINE (UA) NEGATIVE (NEGATIVE); KETONES,URINE 10 mg/dL (NEGATIVE); LEUKOCYTE ESTERASE ,URINE NEGATIVE Leu/uL (NEGATIVE); NITRATE,URINE NEGATIVE (NEGATIVE); OCCULT BLOOD,URINE NEGATIVE (NEGATIVE); PROTEIN,URINE NEGATIVE (NEGATIVE); UROBILINOGEN,URINE 0.2 mg/dL (0.2-1.0)
[2024-03-20 21:06] LABS: BACTERIA,URINE None Seen /HPF (None Seen)
[2024-03-20 21:07] LABS: MUCUS,URINE None Seen LPF (None Seen)
[2024-03-20 21:35] VITALS: BP 132/65; PULSE 95; RESP 18; TEMP 98.2; O2SAT 98
[2024-03-20] MEDS: PoTASSium chloRIDE 20MEQ ER 20 MEQ ERTAB PO ONE (22:08)
--- NOTE | 2024-03-21 06:54 | EKG ---
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
== END 2024-03-20 22:10 | disposition home or self-care (01) ==
LOC: EDH 16:45
DX: K29.70 Gastritis, unspecified, without bleeding (principal); R10.13 Epigastric pain; R11.2 Nausea with vomiting, unspecified; K59.00 Constipation, unspecified; K74.60 Unspecified cirrhosis of liver; E87.6 Hypokalemia; K57.30 Diverticulosis of large intestine without perforation or abscess without bleeding; E03.9 Hypothyroidism, unspecified; E11.9 Type 2 diabetes mellitus without complications; E78.00 Pure hypercholesterolemia, unspecified; I10 Essential (primary) hypertension; Z79.899 Other long term (current) drug therapy; Z90.89 Acquired absence of other organs
CPT/HCPCS: 99284; 74177; 96374; 96361; 96375; 71045; 80076; 84484; 80048; 83690; 85025; 81001; 36415; 93005; J7030; J2405; J2270; J2470; Q9967

== ENCOUNTER 2024-10-09 16:09 | Emergency (ER) | payer OTHER, MEDICARE ==
[~2024-10-09] VITALS: Ht 157.5 cm; Wt 74.8 kg
[~2024-10-09 16:09] MED LIST changes: -LEVO50CA4 PO; +LEVO50CA5 PO; +ONDA-243 PO; +PANT20TA18 PO
--- NOTE | 2024-10-09 16:45 | EKG ---
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
--- NOTE | 2024-10-09 16:47 | NUR ---
PT WAS PLACED ON O2 VIA N/C AT 2 LPM AT REQUEST FRO C/O SHORTNESS OF BREATH. O2 SATS ARE 98-99% ON ROOM AIR.
[2024-10-09 16:54] LABS: BASOPHILS # (AUTO) 0.03 K/uL (0.00-0.20); BASOPHILS % (AUTO) 0.8 % (0.0-5.0); EOSINOPHILS # (AUTO) 0.07 K/uL (0.00-0.70); HEMATOCRIT 39.3 % (36-48); LYMPHOCYTES # (AUTO) 1.1 K/uL (1.0-4.8); LYMPHOCYTES % (AUTO) 31.9 % (21.0-51.0); MEAN CORPUSCULAR HEMOGLOBIN 31.5 pg (27.0-33.0); MEAN CORPUSCULAR HGB CONC 33.6 g/dL (32.0-36.0); MEAN CORPUSCULAR VOLUME 93.8 fL (79-99); MONOCYTES # (AUTO) 0.6 K/uL (0.1-1.0); MONOCYTES % (AUTO) 17.2 % (3.0-13.0); NEUTROPHILS # (AUTO) 1.7 K/uL (1.8-7.7); NEUTROPHILS % (AUTO) 48.1 % (40.0-77.0); PLATELET COUNT (AUTO) 91 K/uL (130-400); RED BLOOD CELL COUNT(AUTO) 4.19 MIL/uL (4.00-5.50); RED CELL DISTRIBUTION WIDTH 14.2 % (11.0-15.5); WHITE BLOOD COUNT (AUTO) 3.5 K/uL (4.8-10.8)
[2024-10-09 17:03] LABS: CREATININE 0.6 mg/dL (0.5-1.0); POTASSIUM 3.5 mmol/L (3.5-5.1)
[2024-10-09 17:21] LABS: B-TYPE NATRIURETIC PEPTIDE 33 pg/mL (0-100)
--- NOTE | 2024-10-09 17:24 | HMCIMG ---
PORTABLE CHEST RADIOGRAPH INDICATION: dyspnea COMPARISON: None FINDINGS: Heart size is normal. The pulmonary vascularity and jeanne appear normal. No abnormal pulmonary parenchymal opacity or consolidation identified. No significant pleural effusion noted. No pneumothorax detected. IMPRESSION: No radiographic evidence for any acute cardiopulmonary process.
[2024-10-09 17:27] LABS: INR 1.15 (0.85-1.15)
[2024-10-09 18:12] LABS: COVID19 (SARS ANTIGEN RAPID) PRESUMPTIVE NEGATIVE (NEGATIVE); INFLUENZA TYPE A Negative For Type A (NEGATIVE); INFLUENZA TYPE B Negative For Type B (NEGATIVE)
[2024-10-09 18:23] LABS: APPEARANCE,URINE CLEAR (CLEAR); BILIRUBIN,URINE NEGATIVE (NEGATIVE); COLOR,URINE LIGHT-YELLOW (YELLOW); GLUCOSE, URINE (UA) NEGATIVE (NEGATIVE); KETONES,URINE NEGATIVE (NEGATIVE); LEUKOCYTE ESTERASE ,URINE 75 Leu/uL (NEGATIVE); NITRATE,URINE NEGATIVE (NEGATIVE); OCCULT BLOOD,URINE NEGATIVE (NEGATIVE); PROTEIN,URINE NEGATIVE (NEGATIVE); UROBILINOGEN,URINE 0.2 mg/dL (0.2-1.0)
--- NOTE | 2024-10-09 18:23 | ERN ---
ED Note History of Present Illness Stated Complaint: SOB Chief Complaint: Shortness of Breath Time Seen by MD: 17:10 Time Seen by Midlevel: 17:10 Dictation: The patient is a 69-year-old female with a history of diabetes, hypertension presents to the emergency department with complaints of shortness of breath onset morning at 7:00 a.m. patient reports the shortness of breath is worse with ambulation. Patient reports shortness of breath has resolved. Denies any chest pain, cough, fevers. No other complaints reported. Allergies: Coded Allergies: No Known Drug Allergies (Unverified Allergy, Unknown, 11/16/21) Home Meds Active Scripts Ondansetron (Ondansetron Odt) 4 Mg Tab.rapdis, 4 MG PO Q6HPRN PRN for nausea, #16 TAB 0 Refills Prov:SIGRID HEATON OPTICAL TECHNICIAN 03/20/24 Pantoprazole Sodium (Pantoprazole Sodium) 20 Mg Tablet.dr, 1 TAB PO DAILY for 30 Days, #30 TAB 0 Refills Prov:SIGRID HEATON OPTICAL TECHNICIAN 03/20/24 Lactulose (Lactulose) 20 Gram/30 Ml Solution, 30 ML PO DAILY for constipation for 30 Days, #900 ML 0 Refills Prov:SIGRID HEATON OPTICAL TECHNICIAN 03/20/24 Lactulose (Lactulose) 20 Gm/30 Ml Solution, 20 GM PO BID for For constipation for 30 Days, #470 ML 0 Refills Prov:MICHAEL HERNANDEZ MD 12/01/21 Furosemide (Lasix 20Mg Tab) 20 Mg Tablet, 20 MG PO DAILY for 15 Days, #15 TAB 0 Refills Prov:MICHAEL HERNANDEZ MD 12/01/21 Reported Medications Atorvastatin Calcium (Atorvastatin Calcium) 20 Mg Tablet, 20 MG PO DAILY, TAB 11/29/21 Levothyroxine Sodium (Levothyroxine) 50 Mcg Capsule, 50 MCG PO ACBKFST, CAP 11/29/21 Spironolactone (Spironolactone) 25 Mg Tablet, 25 MG PO BOLUS, TAB 11/29/21 Past Medical History Past Medical History: Diabetes-Type II, High Cholesterol, Hypertension Additional Past Medical Hx: LIVER CIRRHOSIS Surgical History: Other Surgical History Other: THYROIDCETOMY Social History: Negative, Lives with family, Lives alone History: Not Applicable RN Note Reviewed/Agreed w/PFSH: Yes Review of System Dictation Constitutional: Negative for fever,chills, and weight loss Eyes: Negative for injury, pain,redness, and discharge ENT: Negative for injury,pain or swelling Cardiovascular: Negative for chest pain, palpitations, and edema Respiratory: Negative for cough, and wheezing, positive for shortness of breath Abdomen/GI: Negative for abdominal pain, nausea, vomiting, diarrhea, and constipation Back: Negative for injury and pain : Negative for injury, bleeding and discharge MS/Extremity: Negative for injury and deformity Skin: Negative for rash, and discoloration Neuro: Negative for headache, weakness, numbness, tingling, and seizure Psych: Negative for suicide ideation, homicidal ideation, and hallucinations Initial Vital Sign VS Vital Signs Date Time Temp Pulse Resp B/P (MAP) Pulse Ox O2 Delivery O2 Flow Rate FiO2 10/09/24 16:18 98.8 77 17 151/74 98 Room Air 10/09/24 16:42 0 21 Physical Exam Dictation Vital Signs reviewed General Appearance: Alert, oriented x 3, no acute distress, well developed, nourished. Head and Face: non-traumatic. Eyes: PERRL, pink conjunctivas, eyelid no trauma, anterior chamber with arcus senilis. Ears: Pinnas intact and no signs of trauma or erythema ear canals clear and no discharge TM no erythema Nose: No discharge, no bleeding. Oropharynx: Mouth normal, tongue pink. pharynx clear,no erythema, tonsils no exudates, no abscesses noted, mucous membrane moist Neck: Supple, non-tender, no thyromegaly, no masses, no JVD, no bruits Breast:Deferred Chest:No tenderness, no crepitus, no paradoxical movement, no retractions Lungs:Clear, well-ventilated, symmetric, no rales, no wheezing, no rhonchi, no stridor, good breath sounds bilaterally Heart: Regular rate, regular rhythm, no murmur, no gallops Vascular: no peripheral edema, Abdomen: Soft, positive bowel sounds, nondistended, no guarding, nontender, no rebound, no masses no hepatomegaly, no splenomegaly, no Ehrnandez's s ign, no hernias. Rectal: Deferred Genital: Deferred Neurological: Normal speech, motor function intact, sensory function intact Musculoskeletal: Neck nontender, full range of motion, back nontender, full range of motion, Extremities: nontender, full range of motion Skin: Color pink, dry, no turgor, no rash, no lacerations, no abrasions, no contusions. Lymphatic: Deferred Results (Laboratory/Radiology) Laboratory/Radiology Laboratory Tests Test 10/09/24 16:46 10/09/24 17:30 10/09/24 18:12 White Blood Count 3.5 K/uL (4.8-10.8) L Red Blood Count 4.19 MIL/uL (4.00-5.50) Hemoglobin 13.2 g/dL (12.0-16.0) Hematocrit 39.3 % (36-48) Mean Corpuscular Volume 93.8 fL (79-99) Mean Corpuscular Hemoglobin 31.5 pg (27.0-33.0) Mean Corpuscular Hemoglobin Concent 33.6 g/dL (32.0-36.0) Red Cell Distribution Width 14.2 % (11.0-15.5) Platelet Count 91 K/uL (130-400) L Mean Platelet Volume 9.8 fL (7.5-10.5) Immature Granulocyte % (Auto) 0.0 % (0-1) Neutrophils (%) (Auto) 48.1 % (40.0-77.0) Lymphocytes (%) (Auto) 31.9 % (21.0-51.0) Monocytes (%) (Auto) 17.2 % (3.0-13.0) H Eosinophils (%) (Auto) 2.0 % (0.0-8.0) Basophils (%) (Auto) 0.8 % (0.0-5.0) Neutrophils # (Auto) 1.7 K/uL (1.8-7.7) L Lymphocytes # (Auto) 1.1 K/uL (1.0-4.8) Monocytes # (Auto) 0.6 K/uL (0.1-1.0) Eosinophils # (Auto) 0.07 K/uL (0.00-0.70) Basophils # (Auto) 0.03 K/uL (0.00-0.20) Absolute Immature Granulocyte (auto 0.00 K/uL (0-1) Nucleated Red Blood Cells 0.0 % (0.0-0.19) White Cell Morphology Comment See comments Prothrombin Time 12.0 SEC (9.6-11.6) H Prothromb Time International Ratio 1.15 (0.85-1.15) Sodium Level 144 mmol/L (136-145) Potassium Level 3.5 mmol/L (3.5-5.1) Chloride Level 110 mmol/L (101-111) Carbon Dioxide Level 27 mmol/L (21-32) Blood Urea Nitrogen 9 mg/dL (7-18) Creatinine 0.6 mg/dL (0.5-1.0) Glomerular Filtration Rate Calc 98 mL/min (>90) Random Glucose 88 mg/dL (70-105) Total Calcium 8.8 mg/dL (8.5-10.1) Troponin I High Sensitivity 5 ng/L (4-50) B-Type Natriuretic Peptide 33 pg/mL (0-100) Influenza Type A Antigen Negative For Type A Influenza Type B Antigen Negative For Type B SARS-CoV-2 Antigen (Rapid) PRESUMPTIVE NEGATIVE Urine Color LIGHT-YELLOW (YELLOW) Urine Appearance CLEAR (CLEAR) Urine pH 7.0 (5.0-8.0) Urine Specific [place] 1.009 (1.001-1.031) Urine Protein NEGATIVE mg/dL (NEGATIVE) Urine Glucose (UA) NEGATIVE mg/dL (NEGATIVE) Urine Ketones NEGATIVE mg/dL (NEGATIVE) Urine Occult Blood NEGATIVE (NEGATIVE) Urine Nitrate NEGATIVE (NEGATIVE) Urine Bilirubin NEGATIVE mg/dL (NEGATIVE) Urine Urobilinogen 0.2 mg/dL (0.2-1.0) Urine Leukocyte Esterase 75 Isaiah/uL (NEGATIVE) H Urine RBC 2-5 /HPF (0-1) H Urine WBC 11-25 /HPF (0-1) H Urine Squamous Epithelial Cells RARE /HPF (0-2) Urine Bacteria RARE /HPF (None Seen) Labs Reviewed?: Yes EKG: (+) rhythm (Sinus rhythm) EKG Comment: Date:10/09/2024 Time:1642 Ventricular rate:68 ND interval:156 QRS duration:85 QT/QTc:421 EKG interpretation: Sinus rhythm Reviewed by ED Attending no STEMI ED Course ED Course Orders Procedure Category Date Status Time Cbc With Differential LAB 10/09/24 Complete 16:22 Prothrombin Time With LAB 10/09/24 Complete INR 16:22 B-Type Natriuretic LAB 10/09/24 Complete Peptide 16:22 Chest 1vw RAD 10/09/24 Resulted 16:22 12 Lead Ekg Tracing- EKG 10/09/24 Resulted Technical 16:22 Troponin I High LAB 10/09/24 Complete Sensitivity 16:22 Basic Metabolic Panel LAB 10/09/24 Complete 16:22 Covid19 (Sars Antigen LAB 10/09/24 Complete Rapid) 17:18 Influenza Type A & B, LAB 10/09/24 Complete Rapid 17:18 Urinalysis Profile LAB 10/09/24 Complete 18:18 Culture Urine RADHA 10/09/24 In Process 18:28 Vital Signs Date Time Temp Pulse Resp B/P (MAP) Pulse Ox O2 Delivery O2 Flow Rate FiO2 10/09/24 18:55 98.8 69 18 120/59 98 Room Air* 0 21 10/09/24 17:55 98.8 69 18 128/58 98 Room Air* 0 21 10/09/24 16:42 69 18 134/60 98 Room Air* 0 21 10/09/24 16:18 98.8 77 17 151/74 98 Room Air Medical Decision Making MDM The patient is a 69-year-old female with a history of diabetes, hypertension presents to the emergency department with complaints of shortness of breath onset morning at 7:00 a.m. patient reports the shortness of breath is worse with ambulation. Patient reports shortness of breath has resolved. Denies any chest pain, cough, fevers. No other complaints reported. CBC showed no leukocytosis, mild thrombocytopenia, chemistry showed no electrolyte imbalance, negative troponin, negative BNP, negative serology, x-ray showed no acute infiltrates. On physical exam patient is no acute distress. no swelling to lower extremities Saturating 98% on room air. Stable vital signs. Patient instructed to follow up with primary doctor for further evaluation. Patient agrees with discharge planning. Differential diagnosis: COVID 19 infection, upper respiratory infection, anxiety, ACS, pneumonia, pneumothorax Need for hospitalization: Patient does not meet criteria for hospitalization. There are no social concerns with this patient. DX & DISP Disposition: Discharge Departure Impression: Primary Impression: Dyspnea on exertion Additional Impression: Shortness of breath Condition: Stable Additional Instructions: Please follow up with the primary doctor in 1-2 days. If symptoms worsen please return to ER. FOLLOW-UP WITH PRIMARY CARE PROVIDER IN 1 TO 2 DAYS. TAKE MEDICATIONS DIRECTED HERE IN THE EMERGENCY ROOM. OKAY TO CONTINUE HOME MEDICATIONS UNLESS OTHERWISE DISCUSSED DURING YOUR VISIT IN THE EMERGENCY ROOM TODAY. RETURN TO YOUR NEAREST EMERGENCY ROOM IF SYMPTOMS WORSEN OR IF THERE IS NO IMPROVEMENT. CALL 911 IF YOU NEED IMMEDIATE ASSISTANCE. TAKE TYLENOL OR MOTRIN [id number] NTER NEEDED AND IF NO CONTRAINDICATIONS ARE PRESENT. INCREASE ORAL HYDRATION. A WOUND CULTURE OR URINE CULTURE WAS ORDERED HERE IN THE EMERGENCY ROOM DEPARTMENT PLEASE FOLLOW-UP WITH PRIMARY CARE PROVIDER AND ADVISE THEM TO GET REPEAT PORTS FROM OUR FACILITY. IF YOU HAD ANY TEE WRAP/SPLINTS THAT WERE APPLIED HERE, PLEASE DO NOT REMOVE THEM UNTIL YOU SEE YOUR PRIMARY CARE OR S PECIALTY. Referrals: CARINE CHAVEZ (PCP) Time of Disposition: 18:22 I have reviewed the case, and I agree with, Diagnosis and Plan SIGRID HEATON October 09, 2024 18:23 MHAAD SANDS DO October 10, 2024 08:04
[2024-10-09 18:28] LABS: ADD UA MICROSCOPIC YES
[2024-10-09 18:29] LABS: BACTERIA,URINE RARE /HPF (None Seen); MUCUS,URINE RARE LPF (None Seen); SQUAMOUS EPITHELIAL CELL,UR RARE /HPF (0-2)
[2024-10-09 18:55] VITALS: BP 120/59; PULSE 69; RESP 18; TEMP 98.8; O2SAT 98
== END 2024-10-09 18:56 | disposition home or self-care (01) ==
LOC: EDH 16:09
DX: R06.09 Other forms of dyspnea (principal); R06.02 Shortness of breath; E11.9 Type 2 diabetes mellitus without complications; E78.00 Pure hypercholesterolemia, unspecified; I10 Essential (primary) hypertension; Z79.899 Other long term (current) drug therapy; Z20.822 Contact with and (suspected) exposure to COVID-19
CPT/HCPCS: 36415; 71045; 80048; 81001; 83880; 84484; 85025; 85610; 87086; 87186; 87426; 87804; 93005; 99285